=== PATIENT | female | born 1945 | race Caucasian/White ===

== ENCOUNTER 2017-05-05 08:58 | Day surgery (SDC) | payer MEDICARE, MEDICAID ==
[2017-05-05] VITALS (15 sets, daily range): BP systolic 130–178; BP diastolic 55–107; PULSE 67–94; TEMP 97–98.1
[~2017-05-05] VITALS: Ht 157.6 cm; Wt 69.0 kg
[2017-05-05 09:59] LABS: HEMOGLOBIN 11.2 g/dl (12.5-16.0); MEAN CELL VOLUME 91 fl (80.0-100.0); MEAN CORPUSCULAR HEMOGLOBIN 28 pg (27.0-31.0); MEAN CORPUSCULAR HGB CONC 31 g/dl (33.0-37.0); MEAN PLATELET VOLUME 10.5 fl (7.4-10.4); PLATELET COUNT 233 K/mm3 (130-400); RED BLOOD COUNT 3.94 M/mm3 (4.10-5.30); WHITE BLOOD COUNT 8.4 K/mm3 (4.8-10.8)
[2017-05-05 10:00] LABS: HEMATOCRIT 35.8 % (37.0-47.0)
[2017-05-05] MEDS ORDERED: ASPIRIN 81M81 MG/TA2 PO (10:02)
[2017-05-05] MEDS ORDERED: NORVASC 5MG5 MG/TAB PO (10:02)
[2017-05-05] MEDS ORDERED: SARAFEM10 MG PO (10:03)
[2017-05-05] MEDS ORDERED: CRESTOR40 MG PO (10:03)
[2017-05-05] MEDS ORDERED: PLAVIX 75MG TAB75 MG PO (10:03)
[2017-05-05] MEDS ORDERED: SYNTHROID0.1 MG/TAB PO (10:04)
[2017-05-05] MEDS ORDERED: COZAAR 50MG50 MG/TAB PO (10:04)
[2017-05-05] MEDS ORDERED: MAG-OX 400400 MG/TAB PO (10:05)
[2017-05-05] MEDS ORDERED: MIRALAX PA17 GM/Dose PO (10:06)
[2017-05-05] MEDS ORDERED: GLUCOPHAGE500 MG/TAB PO (10:06)
[2017-05-05] MEDS ORDERED: REMERON 15M15 MG/TA1 PO (10:07)
[2017-05-05 10:08] LABS: INR 1.2 (0.8-3.0)
[2017-05-05] MEDS ORDERED: FLORASTOR250 MG PO (10:08)
[2017-05-05] MEDS ORDERED: MASON NATURAL2000 IU PO (10:09)
[2017-05-05] MEDS ORDERED: RT SPIRIVA18 MCG IH (10:09)
[2017-05-05] MEDS ORDERED: PULMICORT0.25 MG/2 IH (10:13)
[2017-05-05] MEDS ORDERED: RISPERDAL 0.20.25 MG PO (10:14)
[2017-05-05] MEDS ORDERED: COREG 6.256.25 MG/TA PO (10:14)
[2017-05-05 11:02] LABS: CREATININE, serum 0.94 mg/dL (0.52-1.25)
[2017-05-05] MEDS ORDERED: SENOKOT8.6 MG PO (11:50)
[2017-05-05] MEDS ORDERED: CARAFATE 1GM1 G PO (11:51)
[2017-05-05] MEDS ORDERED: VITAMINC250CH PO (11:51)
[2017-05-05] MEDS ORDERED: FERROUS SU325 MG/TAB PO (11:52)
[2017-05-05] MEDS ORDERED: NEURONTIN600 MG/TAB PO (11:54)
[2017-05-05] MEDS ORDERED: ROBAXIN 50500 MG/TAB PO (11:57)
[2017-05-05] MEDS ORDERED: PERCOCET 325 MG1 TA2 PO (11:58)
[2017-05-05] MEDS ORDERED: LANTUS100 U/ML SQ (11:59)
[2017-05-05] MEDS ORDERED: NOVOLOG 100U100 U/M1 SQ (12:00)
== END 2017-05-05 20:00 | disposition home or self-care (01) ==
LOC: COL.CAR 08:58
PROVIDERS: Radiology Diagnostic Radiology
DX: I70.203 Unspecified atherosclerosis of native arteries of extremities, bilateral legs (principal); E11.9 Type 2 diabetes mellitus without complications; I73.9 Peripheral vascular disease, unspecified; D64.9 Anemia, unspecified; E78.00 Pure hypercholesterolemia, unspecified; I10 Essential (primary) hypertension; K21.9 Gastro-esophageal reflux disease without esophagitis; M19.90 Unspecified osteoarthritis, unspecified site; J44.9 Chronic obstructive pulmonary disease, unspecified; F32.9 Major depressive disorder, single episode, unspecified; Z79.01 Long term (current) use of anticoagulants; Z79.84 Long term (current) use of oral hypoglycemic drugs
CPT/HCPCS: J1644; J2250; J3010; Q9967